=== PATIENT | male | born 1970 | race Caucasian/White ===

== ENCOUNTER 2019-08-03 05:22 | Inpatient (IN) | payer BC ==
[2019-08-03] MEDS ORDERED: Sodium Chloride 0.9% 1,000 ML IV ONE ×2 (05:35→05:38)
[2019-08-03] MEDS ORDERED: Ondansetron 4 MG/2 ML SDV IVPUSH ONE (05:38)
[2019-08-03] MEDS ORDERED: Pantoprazole 40 MG Vial IVPUSH SCH (05:45)
[2019-08-03] MEDS: Sodium Chloride 0.9% 10 ML Syringe FLUSH PRN ×2 (05:46→10:38)
--- NOTE | 2019-08-03 05:47 | EDM.PDOC ---
ED HPI GENERAL MEDICAL PROBLEM - General Chief Complaint: Gastrointestinal Problem Stated Complaint: [facility] Time Seen by Provider: 08/03/19 05:33 Source of Information: Reports: Patient, EMS History Limitations: Reports: No Limitations - History of Present Illness INITIAL COMMENTS - FREE TEXT/NARRATIVE: Patient presents by ambulance from an area cabin in which they were staying after developing maroon-colored stools and weakness approximately 0230 hours today. He has a history of gastric bypass surgery 17 years ago and also an episode of GI bleeding previously. He had been feeling well recently and actually is scheduled for shoulder surgery next week in [place]. He is here visiting from [place], [place] and they were staying in a cabin nearby. He spent much of the day cooking with his and did consume some alcohol in the course of yesterday. After noticing the dark maroon stools and weakness he was going to awaken his who is sleeping in another room but he was too weak to stand up. She came in to assist and again he was too weak so paramedics were called. He's had some nausea but no vomiting. On arrival, he was put into bed but then had another bowel movement urge. He wanted to get up to a bedside commode and after sitting down on the commode, passed out. Multiple staff members were required to get him back into bed and he was semi-alert and diaphoretic. Staff assist page went overhead prior to this event. At this time, he has 2 IVs running wide open and is being given pantoprazole and ondansetron. Onset: Today Quality: Reports: Ache (Neck and arm aches since bleeding began earlier this morning.) Severity: Severe Improves with: Reports: None Worsens with: Reports: Movement Associated Symptoms: Reports: Diaphoresis, Nausea/Vomiting - Related Data Allergies Allergy/AdvReac Type Severity Reaction Status Date / Time azithromycin Allergy Nausea Verified 08/03/19 05:33 codeine Allergy Nausea Verified 08/03/19 05:33 morphine Allergy Nausea Verified 08/03/19 05:33 Home Meds: Home Meds LORazepam [Ativan] 1 mg PO ASDIRECTED PRN 08/03/19 [History] ED ROS GENERAL - Review of Systems Review Of Systems: See Below Constitutional: Reports: Weakness, Diaphoresis HEENT: Reports: No Symptoms Respiratory: Reports: No Symptoms Cardiovascular: Reports: No Symptoms Endocrine: Reports: No Symptoms GI/Abdominal: Reports: Black Stool, Bloody Stool, Nausea : Reports: No Symptoms Musculoskeletal: Reports: Neck Pain, Arm Pain (Both arms.) Skin: Reports: Pallor, Diaphoresis Hematologic/Lymphatic: Denies: Anemia, Easy Bleeding ED EXAM, GI/ABD - Physical Exam Exam: See Below Exam Limited By: Altered Mental Status General Appearance: Lethargic, Severe Distress. No: Active Emesis Neck: Normal Inspection Respiratory/Chest: Lungs Clear Cardiovascular: Tachycardia GI/Abdominal Exam: Soft Course - Vital Signs Last Recorded V/S: Last Vital Signs Temp 35.9 C 08/03/19 05:34 Pulse 116 H 08/03/19 06:52 Resp 16 08/03/19 06:19 BP 123/76 08/03/19 06:52 Pulse Ox 98 08/03/19 06:52 - Orders/Labs/Meds Orders: Active Orders 24 hr Category Date Time Status EKG Documentation Completion [RC] ASDIRECTED Care 08/03/19 06:02 Ordered PATIENT RETYPE [BBK] Stat Lab 08/03/19 05:33 Results TYPE AND SCREEN [BBK] Stat Lab 08/03/19 05:33 Ordered Pantoprazole [ProTONIX IV] Med 08/03/19 05:45 Ordered 80 mg IVPUSH .BOLUS Sodium Chloride 0.9% [Saline Flush] Med 08/03/19 05:33 Ordered 10 ml FLUSH ASDIRECTED PRN Saline Lock Insert [OM.PC] Routine Oth 08/03/19 05:33 Ordered Saline Lock Insert [OM.PC] Routine Oth 08/03/19 05:35 Ordered EKG 12 Lead [EK] Routine Ther 08/03/19 06:01 Ordered Medication Orders Pantoprazole Sodium (Protonix Iv) 80 mg IVPUSH .BOLUS TAMMY Last Admin: 08/03/19 05:49 Dose: 80 mg Sodium Chloride (Saline Flush) 10 ml FLUSH ASDIRECTED PRN PRN Reason: Keep Vein Open Last Admin: 08/03/19 05:46 Dose: 10 ml Labs: Laboratory Tests 08/03/19 08/03/19 08/03/19 Range/Units 05:33 05:33 05:33 WBC 13.8 H (4.5-11.0) K/uL RBC 3.30 L (4.30-5.90) M/uL Hgb 10.0 L (12.0-15.0) g/dL Hct 29.7 L (40.0-54.0) % MCV 90 (80-98) fL MCH 30 (27-31) pg MCHC 34 (32-36) % Plt Count 272 (150-400) K/uL Neut % (Auto) 79 H (36-66) % Lymph % (Auto) 16 L (24-44) % [place] % (Auto) 5 (2-6) % Eos % (Auto) 1 L (2-4) % Baso % (Auto) 0 (0-1) % Sodium 140 (140-148) mmol/L Potassium 4.5 (3.6-5.2) mmol/L Chloride 107 (100-108) mmol/L Carbon Dioxide 16 L (21-32) mmol/L Anion Gap 21.5 H (5.0-14.0) mmol/L BUN 38 H (7-18) mg/dL Creatinine 0.8 (0.8-1.3) mg/dL Est Cr Clr Drug Dosing 125.29 mL/min Estimated GFR (MDRD) > 60 (>60) Glucose 119 H (74-106) mg/dL Calcium 7.7 L (8.5-10.1) mg/dL Total Bilirubin 0.2 (0.2-1.0) mg/dL AST 39 H (15-37) U/L ALT 48 (12-78) U/L Alkaline Phosphatase 55 (46-116) U/L Troponin I (0.000-0.056) ng/mL Total Protein 5.7 L (6.4-8.2) g/dL Albumin 3.0 L (3.4-5.0) g/dL Globulin 2.7 (2.3-3.5) g/dL Albumin/Globulin Ratio 1.1 L (1.2-2.2) Lipase 124 (73-393) U/L Ethyl Alcohol mg/dL Blood Type O POSITIVE Gel Antibody Screen Negative 08/03/19 08/03/19 08/03/19 Range/Units 05:52 06:01 06:32 WBC (4.5-11.0) K/uL RBC (4.30-5.90) M/uL Hgb 8.1 L (12.0-15.0) g/dL Hct (40.0-54.0) % MCV (80-98) fL MCH (27-31) pg MCHC (32-36) % Plt Count (150-400) K/uL Neut % (Auto) (36-66) % Lymph % (Auto) (24-44) % [place] % (Auto) (2-6) % Eos % (Auto) (2-4) % Baso % (Auto) (0-1) % Sodium (140-148) mmol/L Potassium (3.6-5.2) mmol/L Chloride (100-108) mmol/L Carbon Dioxide (21-32) mmol/L Anion Gap (5.0-14.0) mmol/L BUN (7-18) mg/dL Creatinine (0.8-1.3) mg/dL Est Cr Clr Drug Dosing mL/min Estimated GFR (MDRD) (>60) Glucose (74-106) mg/dL Calcium (8.5-10.1) mg/dL Total Bilirubin (0.2-1.0) mg/dL AST (15-37) U/L ALT (12-78) U/L Alkaline Phosphatase (46-116) U/L Troponin I < 0.017 (0.000-0.056) ng/mL Total Protein (6.4-8.2) g/dL Albumin (3.4-5.0) g/dL Globulin (2.3-3.5) g/dL Albumin/Globulin Ratio (1.2-2.2) Lipase (73-393) U/L Ethyl Alcohol 89 mg/dL Blood Type Gel Antibody Screen Meds: Medications Generic Name Dose Route Start Last Admin Trade Name Freq PRN Reason Stop Dose Admin Pantoprazole Sodium 80 mg 08/03/19 05:45 08/03/19 05:49 Protonix Iv IVPUSH 80 mg .BOLUS TAMMY Administration Sodium Chloride 10 ml 08/03/19 05:33 08/03/19 05:46 Saline Flush FLUSH 10 ml ASDIRECTED PRN Administration Keep Vein Open Discontinued Medications Generic Name Dose Route Start Last Admin Trade Name Freq PRN Reason Stop Dose Admin Sodium Chloride 1,000 mls @ 999 mls/hr 08/03/19 05:35 08/03/19 05:39 Normal Saline IV 08/03/19 06:35 999 mls/hr .BOLUS ONE Administration Sodium Chloride 1,000 mls @ 999 mls/hr 08/03/19 05:38 08/03/19 05:40 Normal Saline IV 08/03/19 06:38 999 mls/hr .BOLUS ONE Administration Ondansetron HCl 4 mg 08/03/19 05:38 08/03/19 05:46 Zofran IVPUSH 08/03/19 05:39 4 mg ONETIME ONE Administration - Re-Assessments/Exams Free Text/Narrative Re-Assessment/Exam: 08/03/19 06:02 After placement into bed and establishment of wide open fluid boluses, the patient is feeling better. He is extremely thirsty and has been allowed to have some ice chips. With his history, he may be hospitalized here but also may need to go to a facility that has interventional capabilities given his hypotension. At this time, his hemoglobin is 10. 08/03/19 06:05 08/03/19 06:27 I returned to check on the patient again and is feeling better although he is shaking quite a bit and feels cold. He states that he had had consultation with a Dr. Hooker at [facility] after his GI bleed [address] Hooker told him that he could be having bleeding from the pouch within his gastric bypass area and that could be why they're not seeing anything. I reviewed his case with Dr. Bueno, the hospitalist overnight. He will arrange admission and further evaluation here. 08/03/19 07:19 Recheck hemoglobin is 8.1 after 2 L of normal saline. Departure - Departure Time of Disposition: 06:29 Disposition: Admitted As Inpatient 68 Condition: Fair Clinical Impression: Gastrointestinal bleeding, lower, Hypotension due to blood loss, Nausea Syncope Qualifiers: Syncope type: unspecified Qualified Code(s): R55 - Syncope and collapse - Discharge Information *PRESCRIPTION DRUG MONITORING PROGRAM REVIEWED*: Not Applicable *COPY OF PRESCRIPTION DRUG MONITORING REPORT IN PATIENT CAROLYN: Not Applicable Referrals: PCP,None [Primary Care Provider] - Forms: ED Department Discharge Sepsis Event Note - Evaluation Sepsis Screening Result: No Definite Risk - Focused Exam Vital Signs: Vital Signs Temp Pulse Resp BP Pulse Ox 08/03/19 06:52 116 H 123/76 98 08/03/19 06:19 100 16 124/76 98 08/03/19 06:04 97 117/75 08/03/19 05:49 104 H 116/71 08/03/19 05:34 35.9 C 102 H 16 110/66 98 Date Exam was Performed: 08/03/19 Time Exam was Performed: 07:15 - My Orders Last 24 Hours: My Active Orders 08/03/19 05:33 PATIENT RETYPE [BBK] Stat TYPE AND SCREEN [BBK] Stat Sodium Chloride 0.9% [Saline Flush] 10 ml FLUSH ASDIRECTED PRN Saline Lock Insert [OM.PC] Routine 08/03/19 05:35 Saline Lock Insert [OM.PC] Routine 08/03/19 05:45 Pantoprazole [ProTONIX IV] 80 mg IVPUSH .BOLUS 08/03/19 06:01 EKG 12 Lead [EK] Routine 08/03/19 06:02 EKG Documentation Completion [RC] ASDIRECTED - Assessment/Plan Last 24 Hours: My Active Orders 08/03/19 05:33 PATIENT RETYPE [BBK] Stat TYPE AND SCREEN [BBK] Stat Sodium Chloride 0.9% [Saline Flush] 10 ml FLUSH ASDIRECTED PRN Saline Lock Insert [OM.PC] Routine 08/03/19 05:35 Saline Lock Insert [OM.PC] Routine 08/03/19 05:45 Pantoprazole [ProTONIX IV] 80 mg IVPUSH .BOLUS 08/03/19 06:01 EKG 12 Lead [EK] Routine 08/03/19 06:02 EKG Documentation Completion [RC] ASDIRECTED
--- NOTE | 2019-08-03 07:44 | PCM.HP.2 ---
H&P History of Present Illness - General Date of Service: 08/03/19 Admit Problem/Dx: Admission Diagnosis/Problem Admission Diagnosis/Problem Acute gastrointestinal hemorrhage Source of Information: Patient, Family, Provider History Limitations: Reports: No Limitations - History of Present Illness Initial Comments - Free Text/Narative: CC: pooping blood HPI: Kt presents to the emergency room today with maroon-colored stools. He reports that he was in his usual state of health yesterday. He went to bed last night feeling fine. He woke up this morning with the urge to defecate. When he was in the bathroom he had watery stool which was maroon in color and filled the toilet bowl. He also had some on the floor. He had multiple episodes at home. He was weak, had mild nausea and was slightly diaphoretic. No complaints of abdominal pain. No complaints of chest pain or shortness of breath. He has not had any fevers but does feel chilled at this time. He continues to pass maroon-colored stool at the time of presentation to the emergency room. He had a similar episode a couple of years ago and had negative upper and lower endoscopy at that time. 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 He reports infrequent use of nonsteroidal anti-inflammatories. He does consume alcohol on a daily basis. Work-up in the emergency room revealed a hemoglobin of 10. The patient was tachycardic and initially hypotensive but did respond to IV fluids. He has received a bolus of pantoprazole. He has 2 IV sites and has been typed and crossed for 4 units of blood. He will be admitted to the intensive care unit. - Related Data Allergies/Adverse Reactions: Allergies Allergy/AdvReac Type Severity Reaction Status Date / Time azithromycin Allergy Nausea Verified 08/03/19 05:33 codeine Allergy Nausea Verified 08/03/19 05:33 erythromycin base Allergy Difficulty Verified 08/03/19 08:51 Breathing morphine Allergy Nausea Verified 08/03/19 05:33 Home Medications: Home Meds Ferrous Sulfate [Iron] 1 tab PO TID 08/03/19 [History] LORazepam [Ativan] 1 mg PO ASDIRECTED PRN 08/03/19 [History] Pantoprazole Sodium [Protonix] 40 mg PO BID 08/03/19 [History] Past Medical History Other Cardiovascular History: PVCs Gastrointestinal History: Reports: GI Bleed Genitourinary History: Reports: Renal Calculus Musculoskeletal History: Reports: Neck Pain, Chronic Other Musculoskeletal History: chronic shoulder pain Psychiatric History: Reports: Depression Dermatologic History: Reports: Eczema - Past Surgical History GI Surgical History: Reports: Bariatric Procedure, Cholecystectomy, Colostomy, EGD Other GI Surgeries/Procedures: gastric bypass 2002 Social & Family History - Family History GI: Denies: GI bleed - Tobacco Use Smoking Status *Q: Former Smoker Used Tobacco, but Quit: Yes Month/Year Tobacco Last Used: 2008 - Caffeine Use Caffeine Use: Reports: Coffee, Energy Drinks - Alcohol Use Days Per Week of Alcohol Use: 7 Number of Drinks Per Day: 4 Total Drinks Per Week: 28 - Recreational Drug Use Recreational Drug Use: Yes Recreational Drug Type: Reports: Marijuana/Hashish H&P Review of Systems - Review of Systems: Review Of Systems: See Below Free Text/Narrative: A complete 12 point review of systems was obtained. Pertinent positives and negatives are noted in the history of present illness. All other systems were reviewed and were negative except as noted. Exam - Exam Exam: See Below - Vital Signs Vital Signs: Last Vital Signs Temp 35.9 C 08/03/19 05:34 Pulse 116 H 08/03/19 06:52 Resp 16 08/03/19 06:19 BP 123/76 08/03/19 06:52 Pulse Ox 98 08/03/19 06:52 Weight: 108.862 kg - Exam Quality Assessment: No: Supplemental Oxygen General: Alert, Oriented, Cooperative. No: Mild Distress HEENT: Conjunctiva Clear, Mucosa Moist & [place]. No: Scleral Icterus Neck: Supple, Trachea Midline. No: Lymphadenopathy Lungs: Clear to Auscultation, Normal Respiratory Effort Cardiovascular: Regular Rhythm, Tachycardia. No: Systolic Murmur GI/Abdominal Exam: Normal Bowel Sounds, Soft, Non-Tender, No Distention Extremities: No Pedal Edema. No: Increased Warmth Peripheral Pulses: 2+: Dorsalis Pedis (L), Dorsalis Pedis (R) Skin: Warm, Dry Neuro Extensive - Mental Status: Alert, Oriented x3, Nl Response to Commands Neuro Extensive - Motor, Sensory, Reflexes: No: Dysarthria, Abnormal Motor, Tremor Psychiatric: Alert, Normal Affect - Patient Data Lab Results Last 24 hrs: Laboratory Results - last 24 hr 08/03/19 08/03/19 08/03/19 Range/Units 05:33 05:33 05:33 WBC 13.8 H (4.5-11.0) K/uL RBC 3.30 L (4.30-5.90) M/uL Hgb 10.0 L (12.0-15.0) g/dL Hct 29.7 L (40.0-54.0) % MCV 90 (80-98) fL MCH 30 (27-31) pg MCHC 34 (32-36) % Plt Count 272 (150-400) K/uL Neut % (Auto) 79 H (36-66) % Lymph % (Auto) 16 L (24-44) % [place] % (Auto) 5 (2-6) % Eos % (Auto) 1 L (2-4) % Baso % (Auto) 0 (0-1) % Sodium 140 (140-148) mmol/L Potassium 4.5 (3.6-5.2) mmol/L Chloride 107 (100-108) mmol/L Carbon Dioxide 16 L (21-32) mmol/L Anion Gap 21.5 H (5.0-14.0) mmol/L BUN 38 H (7-18) mg/dL Creatinine 0.8 (0.8-1.3) mg/dL Est Cr Clr Drug Dosing 125.29 mL/min Estimated GFR (MDRD) > 60 (>60) Glucose 119 H (74-106) mg/dL Calcium 7.7 L (8.5-10.1) mg/dL Total Bilirubin 0.2 (0.2-1.0) mg/dL AST 39 H (15-37) U/L ALT 48 (12-78) U/L Alkaline Phosphatase 55 (46-116) U/L Troponin I (0.000-0.056) ng/mL Total Protein 5.7 L (6.4-8.2) g/dL Albumin 3.0 L (3.4-5.0) g/dL Globulin 2.7 (2.3-3.5) g/dL Albumin/Globulin Ratio 1.1 L (1.2-2.2) Lipase 124 (73-393) U/L Ethyl Alcohol mg/dL Blood Type O POSITIVE Gel Antibody Screen Negative Crossmatch See Detail 0108/03/19 08/03/19 Range/Units 05:52 06:01 06:32 WBC (4.5-11.0) K/uL RBC (4.30-5.90) M/uL Hgb 8.1 L (12.0-15.0) g/dL Hct (40.0-54.0) % MCV (80-98) fL MCH (27-31) pg MCHC (32-36) % Plt Count (150-400) K/uL Neut % (Auto) (36-66) % Lymph % (Auto) (24-44) % [place] % (Auto) (2-6) % Eos % (Auto) (2-4) % Baso % (Auto) (0-1) % Sodium (140-148) mmol/L Potassium (3.6-5.2) mmol/L Chloride (100-108) mmol/L Carbon Dioxide (21-32) mmol/L Anion Gap (5.0-14.0) mmol/L BUN (7-18) mg/dL Creatinine (0.8-1.3) mg/dL Est Cr Clr Drug Dosing mL/min Estimated GFR (MDRD) (>60) Glucose (74-106) mg/dL Calcium (8.5-10.1) mg/dL Total Bilirubin (0.2-1.0) mg/dL AST (15-37) U/L ALT (12-78) U/L Alkaline Phosphatase (46-116) U/L Troponin I < 0.017 (0.000-0.056) ng/mL Total Protein (6.4-8.2) g/dL Albumin (3.4-5.0) g/dL Globulin (2.3-3.5) g/dL Albumin/Globulin Ratio (1.2-2.2) Lipase (73-393) U/L Ethyl Alcohol 89 mg/dL Blood Type Gel Antibody Screen Crossmatch Result Diagrams: 08/03/19 12:00 08/03/19 05:33 Sepsis Event Note - Evaluation Sepsis Screening Result: No Definite Risk - Focused Exam Vital Signs: Vital Signs Temp Pulse Resp BP Pulse Ox 08/03/19 06:52 116 H 123/76 98 08/03/19 06:19 100 16 124/76 98 08/03/19 06:04 97 117/75 01/19/20 05:49 104 H 116/71 08/03/19 05:34 35.9 C 102 H 16 110/66 98 Date Exam was Performed: 08/03/19 Time Exam was Performed: 12:12 *Q Meaningful Use (ADM) - VTE *Q VTE Pharmacological Contraindications *Q: Active Hemorrhage - VTE Risk Assess *Q Each Risk Factor Represents 1 Point: Age 41 - 59 years, Obesity ( BMI > 25 kg/m2 ) Total Score 1 Point Risk Factors: 2 Each Risk Factor Represents 2 Points: None Total Score 2 Point Risk Factors: 0 Each Risk Factor Represents 3 Points: None Total Score 3 Point Risk Factors: 0 Each Risk Factor Represents 5 Points: None Total Score 5 Point Risk Factors: 0 Venous Thromboembolism Risk Factor Score *Q: 2 - Problem List (1) Acute GI hemorrhage SNOMED Code(s): 59282670 ICD Code: K92.2 - GASTROINTESTINAL HEMORRHAGE, UNSPECIFIED Status: Acute Current Visit: Yes (2) Anemia due to blood loss, acute SNOMED Code(s): 417075768 ICD Code: D62 - ACUTE POSTHEMORRHAGIC ANEMIA Status: Acute Current Visit : Yes (3) Hx of gastric bypass SNOMED Code(s): 639044785 ICD Code: Z98.84 - BARIATRIC SURGERY STATUS Status: Chronic Current Visit : Yes Problem List Initiated/Reviewed/Updated: Yes Orders Last 24hrs: Active Orders 24 hr Category Date Time Status Patient Status Manage Transfer [TRANSFER] Routine ADT 08/03/19 07:35 Ordered EKG Documentation Completion [RC] ASDIRECTED Care 08/03/19 06:02 Active PATIENT RETYPE [BBK] Stat Lab 08/03/19 05:33 Results RED BLOOD CELLS LP [BBK] Stat Lab 08/03/19 05:33 Results TYPE AND SCREEN [BBK] Stat Lab 08/03/19 05:33 Results Pantoprazole [ProTONIX IV] Med 08/03/19 05:45 Active 80 mg IVPUSH .BOLUS Sodium Chloride 0.9% [Normal Saline] 1,000 ml Med 08/03/19 07:45 Active IV ASDIRECTED Sodium Chloride 0.9% [Saline Flush] Med 08/03/19 05:33 Active 10 ml FLUSH ASDIRECTED PRN Saline Lock Insert [OM.PC] Routine Oth 08/03/19 05:33 Ordered Saline Lock Insert [OM.PC] Routine Oth 08/03/19 05:35 Ordered Resuscitation Status Routine Resus Stat 08/03/19 07:36 Ordered EKG 12 Lead [EK] Routine Ther 08/03/19 06:01 Ordered Medication Orders Sodium Chloride (Normal Saline) 1,000 mls @ 125 mls/hr IV ASDIRECTED TAMMY Pantoprazole Sodium (Protonix Iv) 80 mg IVPUSH .BOLUS TAMMY Last Admin: 08/03/19 05:49 Dose: 80 mg Sodium Chloride (Saline Flush) 10 ml FLUSH ASDIRECTED PRN PRN Reason: Keep Vein Open Last Admin: 08/03/19 05:46 Dose: 10 ml Assessment/Plan Comment:: ASSESSMENT AND PLAN - Acute gastrointestinal hemorrhage-complicated by acute anemia secondary to blood loss. He is tachycardic but his blood pressure has stabilized. This could be a brisk upper GI bleed from the remnant stomach versus a lower GI bleed. History of similar episode with no source of bleeding identified 2 years ago. 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 Maintenance issues - - DVT prophylaxis -SCDs with active hemorrhage - GI prophylaxis -PPI as above - Nutrition - nothing by mouth - López catheter -not indicated CODE STATUS -full code Admission justification - this patient will be admitted for inpatient services and is medically appropriate meeting medical necessity for inpatient admission as outlined in my documentation. I reasonably expect the patient will require inpatient services that span a period time over 2 midnights. I reasonably expect this patient to be discharged or transferred within 96 hours [facility]. Disposition -I would anticipate discharge home after the hospital stay Primary care physician -Ramírez Bueno M.D. - Mortality Measure Prognosis:: Good
[2019-08-03] MEDS ORDERED: Ondansetron 4 MG Tab.DIS PO PRN (08:36)
[2019-08-03] MEDS ORDERED: Acetaminophen 325 MG Tab PO PRN (08:36)
[2019-08-03] MEDS ORDERED: Ondansetron 4 MG/2 ML SDV IV PRN (08:36)
[2019-08-03] MEDS ORDERED: LORazepam 2 MG/ML SDV IVPUSH PRN (08:36)
[2019-08-03] MEDS: Sodium Chloride 0.9% 1,000 ML IV SCH (09:11)
[2019-08-03] MEDS: Sodium Chloride 0.9% 100 ML with Pantoprazole 80 MG IV SCH ×6 (09:13→18:38)
[2019-08-03] MEDS ORDERED: Propofol 200 MG/20 ML SDV ONE (12:43)
[2019-08-03] MEDS ORDERED: fentaNYL 100 MCG/2 ML SDV ONE (12:44)
[2019-08-03] MEDS ORDERED: Polyethylene Glycol 3350 Powder 238 GM Bot PO ONE (13:44)
[2019-08-03] MEDS: LORazepam 2 MG/ML SDV IVPUSH PRN (22:51)
[2019-08-04] MEDS: Sodium Chloride 0.9% 100 ML with Pantoprazole 80 MG IV SCH ×6 (03:50→16:28)
[2019-08-04] MEDS: Sodium Chloride 0.9% 1,000 ML IV SCH ×3 (05:36→19:55)
--- NOTE | 2019-08-04 08:57 | OR ---
DATE OF PROCEDURE: 08/03/2019 SURGEON: Thuan Sandoval MD PROCEDURE: Esophagogastroduodenoscopy. FINDINGS: Normal EGD. COMPLICATIONS: None. GANG WORKER: None. ANESTHESIA: MAC. PREOPERATIVE DIAGNOSIS: Gastrointestinal bleeding. POSTOPERATIVE DIAGNOSIS: Gastrointestinal bleeding. RISKS: Risks, benefits, alternatives, and limitations including, but not limited to infection, bleeding, and injury to abdominal structures, such as perforation, were explained to the patient, who wished to proceed. PROCEDURE IN DETAIL: The patient was placed in left lateral decubitus position. The EGD scope was introduced and advanced atraumatically into the Mushtaq-en-Y limb. The Mushtaq-en-Y limb was completely normal. The pouch was appropriately sized. No evidence of ulceration or gastritis. No old or new blood. The GE junction was normal. The patient tolerated the procedure well. Thuan Sandoval MD /[id number]
[2019-08-04] MEDS ORDERED: Propofol 200 MG/20 ML SDV ONE (10:04)
[2019-08-04] MEDS ORDERED: Midazolam 1 MG/ML 2 ML SDV ONE (10:04)
[2019-08-04] MEDS ORDERED: fentaNYL 100 MCG/2 ML SDV ONE (10:04)
--- NOTE | 2019-08-04 10:27 | PCM.PN ---
- General Info Date of Service: 08/04/19 Subjective Update: Mr. Gilbert is a 49-year-old gentleman who was admitted through the emergency department yesterday with hematochezia, secondary to GI bleed. He is status post previous Mushtaq-en-Y gastric bypass surgery. He has experienced 2 previous episodes of GI bleeding, both of which were felt to be secondary to the remnant stomach. He was feeling well yesterday when he noted hematochezia with a bowel movement and then began to feel weak and lightheaded. He was brought to the emergency department for further evaluation, initial hemoglobin was 10. EGD was performed yesterday by Dr. Sandoval showing no obvious source of blood loss. He is received IV fluids and serial hemoglobin levels. Hemoglobin dropped to 7.1 last night and he was transfused 1 unit of red blood cells. Hemoglobin this morning was 7.5 and he has received a second unit of red blood cells. Most recent hemoglobin is up to 8.5. Functional Status: Reports: Urinating - Review of Systems General: Reports: Weakness. Denies: Fever, Chills Pulmonary: Reports: No Symptoms Cardiovascular: Reports: No Symptoms Gastrointestinal: Reports: No Symptoms - Patient Data Vitals - Most Recent: Last Vital Signs Temp 97.3 F 08/04/19 09:00 Pulse 81 08/04/19 09:00 Resp 24 H 08/04/19 09:00 BP 116/69 08/04/19 09:00 Pulse Ox 98 08/04/19 09:00 Weight - Most Recent: 240 lb I&O - Last 24 Hours: Intake & Output 08/03/19 08/04/19 08/04/19 22:59 06:59 14:59 Intake Total 4040 1991 390 Output Total 425 Balance 4040 1991 Lab Results Last 24 Hours: Laboratory Results - last 24 hr 08/03/19 08/03/19 08/03/19 Range/Units 05:33 12:00 20:32 WBC (4.5-11.0) K/uL RBC (4.30-5.90) M/uL Hgb 8.2 L 7.1 L (12.0-15.0) g/dL Hct (40.0-54.0) % MCV (80-98) fL MCH (27-31) pg MCHC (32-36) % Plt Count (150-400) K/uL Sodium (140-148) mmol/L Potassium (3.6-5.2) mmol/L Chloride (100-108) mmol/L Carbon Dioxide (21-32) mmol/L Anion Gap (5.0-14.0) mmol/L BUN (7-18) mg/dL Creatinine (0.8-1.3) mg/dL Est Cr Clr Drug Dosing mL/min Estimated GFR (MDRD) (>60) Glucose (74-106) mg/dL Calcium (8.5-10.1) mg/dL Blood Type O POSITIVE Gel Antibody Screen Negative Crossmatch See Detail 08/04/19 08/04/19 08/04/19 Range/Units 04:30 04:30 10:06 WBC 5.2 (4.5-11.0) K/uL RBC 2.60 L (4.30-5.90) M/uL Hgb 7.5 L 8.5 L (12.0-15.0) g/dL Hct 23.7 L (40.0-54.0) % MCV 91 (80-98) fL MCH 29 (27-31) pg MCHC 32 (32-36) % Plt Count 176 (150-400) K/uL Sodium 141 (140-148) mmol/L Potassium 3.5 L (3.6-5.2) mmol/L Chloride 109 H (100-108) mmol/L Carbon Dioxide 25 (21-32) mmol/L Anion Gap 10.5 (5.0-14.0) mmol/L BUN 15 D (7-18) mg/dL Creatinine 0.7 L (0.8-1.3) mg/dL Est Cr Clr Drug Dosing 143.39 mL/min Estimated GFR (MDRD) > 60 (>60) Glucose 96 (74-106) mg/dL Calcium 7.0 L (8.5-10.1) mg/dL Blood Type Gel Antibody Screen Crossmatch Med Orders - Current: Current Medications Acetaminophen (Tylenol) 650 mg PO Q4H PRN PRN Reason: Pain (Mild 1-3)/fever Sodium Chloride (Normal Saline) 1,000 mls @ 125 mls/hr IV ASDIRECTED TAMMY Last Admin: 08/04/19 05:36 Dose: 125 mls/hr Pantoprazole Sodium 80 mg/ (Sodium Chloride) 100 mls @ 10 mls/hr IV .Q10H TAMMY Last Admin: 08/04/19 05:36 Dose: Not Given Potassium Chloride 40 meq/ (Premix) 100 mls @ 25 mls/hr IV ONETIME ONE Stop: 08/04/19 14:17 Lorazepam (Ativan) 0.5 mg IVPUSH Q4H PRN PRN Reason: Nausea/Vomiting Last Admin: 08/03/19 10:35 Dose: 0.5 mg Lorazepam (Ativan) 0.5 mg IVPUSH Q4H PRN PRN Reason: Anxiety Last Admin: 08/03/19 22:51 Dose: 0.5 mg Ondansetron HCl (Zofran Odt) 4 mg PO Q6H PRN PRN Reason: Nausea able to take PO Ondansetron HCl (Zofran) 4 mg IV Q6H PRN PRN Reason: Nausea/Vomiting Sodium Chloride (Saline Flush) 10 ml FLUSH ASDIRECTED PRN PRN Reason: Keep Vein Open Last Admin: 08/03/19 10:38 Dose: 10 ml Discontinued Medications Fentanyl (Sublimaze) Confirm Administered Dose 100 mcg .ROUTE .STK-MED ONE Stop: 08/03/19 12:45 Fentanyl (Sublimaze) Confirm Administered Dose 100 mcg .ROUTE .STK-MED ONE Stop: 08/04/19 10:05 Sodium Chloride (Normal Saline) 1,000 mls @ 999 mls/hr IV .BOLUS ONE Stop: 08/03/19 06:35 Last Admin: 08/03/19 05:39 Dose: 999 mls/hr Sodium Chloride (Normal Saline) 1,000 mls @ 999 mls/hr IV .BOLUS ONE Stop: 08/03/19 06:38 Last Admin: 08/03/19 05:40 Dose: 999 mls/hr Midazolam HCl (Versed 1 Mg/Ml) Confirm Administered Dose 2 mg .ROUTE .STK-MED ONE Stop: 08/04/19 10:05 Ondansetron HCl (Zofran) 4 mg IVPUSH ONETIME ONE Stop: 08/03/19 05:39 Last Admin: 08/03/19 05:46 Dose: 4 mg Pantoprazole Sodium (Protonix Iv) 80 mg IVPUSH .BOLUS TAMMY Last Admin: 08/03/19 05:49 Dose: 80 mg Polyethylene Glycol (Miralax) 238 gm PO ONETIME ONE Stop: 08/03/19 13:45 Last Admin: 08/03/19 15:07 Dose: 238 gm Propofol (Diprivan 20 Ml) Confirm Administered Dose 200 mg .ROUTE .STK-MED ONE Stop: 08/03/19 12:44 Propofol (Diprivan 20 Ml) Confirm Administered Dose 200 mg .ROUTE .STK-MED ONE Stop: 08/04/19 10:05 - Exam General: Alert, Oriented, Cooperative, No Acute Distress Lungs: Clear to Auscultation, Normal Respiratory Effort Cardiovascular: Regular Rate, Regular Rhythm, No Murmurs GI/Abdominal Exam: Soft, Non-Tender, No Organomegaly, No Distention Extremities: Non-Tender, No Pedal Edema Sepsis Event Note - Evaluation Sepsis Screening Result: No Definite Risk - Focused Exam Vital Signs: Vital Signs Temp Temp Pulse Resp BP Pulse Ox 08/04/19 09:00 97.3 F 81 24 H 116/69 98 08/04/19 08:43 97.3 F 89 24 H 116/69 08/04/19 08:36 98 08/04/19 08:30 97.3 F 81 19 111/72 08/04/19 08:00 97.6 F 82 18 104/59 L 08/04/19 07:30 97.4 F 85 14 112/76 08/04/19 07:00 97.5 F 79 17 108/70 95 08/04/19 06:45 97.7 F 81 19 113/68 08/04/19 06:30 97.4 F 75 17 98/65 08/04/19 06:18 98.0 F 78 16 97/66 08/04/19 06:14 97.5 F 77 17 105/64 08/04/19 05:40 98.9 F 80 18 103/61 96 08/04/19 02:00 97.9 F 82 19 108/68 98 08/03/19 23:41 98.9 F 83 17 100/56 L 96 08/03/19 23:15 98.7 F 90 18 97/65 97 08/03/19 23:03 98.5 F 86 17 101/65 96 08/03/19 22:45 99.0 F 90 16 104/61 98 08/03/19 22:30 99.5 F 88 18 123/67 Date Exam was Performed: 08/04/19 Time Exam was Performed: 10:19 - Problem List Review Problem List Initiated/Reviewed/Updated: Yes - My Orders Last 24 Hours: My Active Orders 08/04/19 10:18 Potassium Chloride Riders [KCL 40 MEQ in Water 100 ML] 40 meq Premix Bag 1 bag IV ONETIME 08/04/19 17:00 HGB [HEMOGLOBIN] [HEME] Stat 08/04/19 23:00 HGB [HEMOGLOBIN] [HEME] Stat 08/05/19 05:00 BASIC METABOLIC PANEL,BMP [CHEM] Timed CBC WITH AUTO DIFF [HEME] Timed - Plan Plan:: ASSESSMENT AND PLAN - Acute gastrointestinal hemorrhage-complicated by acute anemia secondary to blood loss. Since admission he has required transfusion of 2 units of red blood cells. EGD performed yesterday showed no obvious source of bleeding, colonoscopy pending this morning. 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 -ICU admission -Maintain 2 IV sites -Pantoprazole infusion -Repeat hemoglobin every 6 hours -Type and cross for 4 units -Transfuse if hypotension or persistent tachycardia or if hemoglobin drops -IV fluids -Surgical consultation for colonoscopy Status post Mushtaq-en-Y gastric bypass-this was done in 2002 in the [facility]. Maintenance issues - - DVT prophylaxis -SCDs with active hemorrhage - GI prophylaxis -PPI as above - Nutrition - nothing by mouth - López catheter -not indicated CODE STATUS -full code Admission justification - this patient will be admitted for inpatient services and is medically appropriate meeting medical necessity for inpatient admission as outlined in my documentation. I reasonably expect the patient will require inpatient services that span a period time over 2 midnights. I reasonably expect this patient to be discharged or transferred within 96 hours [facility] Disposition -I would anticipate discharge home after the hospital stay Primary care physician -Ramírez ANGELES
[2019-08-04] MEDS: Potassium Chloride 20 MEQ, Lidocaine 1% 2 ML in Sodium Chloride 0.9% 100 ML IV SCH ×2 (11:26→13:47)
--- NOTE | 2019-08-04 11:32 | OR ---
DATE OF PROCEDURE: 08/04/2019 SURGEON: Thuan Sandoval MD PROCEDURE: Colonoscopy. FINDINGS: 1. No evidence of old or new blood. 2. No diverticulosis. 3. No etiology for anemia. COMPLICATIONS: None. SUPERVISOR UNLOADING: None. RISKS: Risks, benefits, alternatives, and limitations including, but not limited to infection, bleeding, and perforation were explained to the patient, who wished to proceed. PROCEDURE IN DETAIL: The patient was placed in left lateral decubitus position. Digital rectal exam was performed without abnormality. The scope was introduced and advanced atraumatically to the ileocecal valve. The scope was brought back through the ascending, transverse, descending colon, and retroflexed. No evidence of old or new blood. No masses. No polyps. No diverticulosis. No abnormalities on retroflexion. The patient tolerated the procedure well. Thuan Sandoval MD /[id number]
[2019-08-04] MEDS: LORazepam 2 MG/ML SDV IVPUSH PRN (22:59)
[2019-08-05] MEDS: Sodium Chloride 0.9% 100 ML with Pantoprazole 80 MG IV SCH ×2 (02:10)
[2019-08-05] MEDS: Sodium Chloride 0.9% 1,000 ML IV SCH (02:11)
--- NOTE | 2019-08-05 11:02 | PCM.DCSUM1 ---
Discharge Summary - Hospital Course Brief History: Mr. Gilbert is a 49-year-old gentleman who was admitted through the emergency department with weakness and hematochezia secondary to a GI bleed. - Discharge Data Discharge Date: 08/05/19 Discharge Disposition: Home, Self-Care 01 Condition: Stable - Referral to Home Health Primary Care Physician: PCP None - Discharge Diagnosis/Problem(s) (1) Hypotension due to blood loss SNOMED Code(s): 85849489 ICD Code: I95.89 - OTHER HYPOTENSION Status: Acute Current Visit: Yes (2) Acute GI hemorrhage SNOMED Code(s): 26252713 ICD Code: K92.2 - GASTROINTESTINAL HEMORRHAGE, UNSPECIFIED Status: Acute Current Visit: Yes (3) Anemia due to blood loss, acute SNOMED Code(s): 081986781 ICD Code: D62 - ACUTE POSTHEMORRHAGIC ANEMIA Status: Acute Current Visit : Yes (4) Hx of gastric bypass SNOMED Code(s): 758033337 ICD Code: Z98.84 - BARIATRIC SURGERY STATUS Status: Chronic Current Visit : Yes - Patient Summary/Data Consults: Consultations 08/05/19 10:02 Consult to Physician [CONS] Routine Consulting Provider: Thom Hope Courtesy Call Completed to Consulting Physician: Yes Reason for Consult: Recurrent upper GI bleeds, status post gastric bypass surgery Hospital Course: Mr. Gilbert presented to the emergency room with maroon-colored stools. He went to bed on the evening prior to admission feeling fine. He woke up with the urge to defecate. When he was in the bathroom he had watery stool which was maroon in color and filled the toilet bowl. He also had some on the floor. He had multiple episodes at home. He was weak, had mild nausea and was slightly diaphoretic. No complaints of abdominal pain. He continues to pass maroon- colored stool at the time of presentation to the emergency room. He had 2 previous episodes of similar bleeding and had negative upper and lower endoscopy at that time. 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 He reports infrequent use of nonsteroidal anti- inflammatories. He does consume alcohol on a daily basis. Work-up in the emergency room revealed a hemoglobin of 10. The patient was tachycardic and initially hypotensive but did respond to IV fluids. He has received a bolus of pantoprazole. He has 2 IV sites and has been typed and crossed for 4 units of blood. He will be admitted to the intensive care unit. On admission he was continued on the IV Protonix as well as IV fluids. Serial hemoglobin levels were obtained and hemoglobin did drop to 7.1 on the evening of admission. He was transfused 2 units of red blood cells and following that there was no further evidence of active bleeding. Hemoglobin remained within stable range from 7.9-8.5, on the day of discharge hemoglobin was 8.1. He was seen and evaluated by Dr. Sandoval for a surgical consult. EGD was performed on the day after admission and showed no obvious source of active bleeding. Colonoscopy was performed the following day and also showed no obvious source of active bleeding. Prior to discharge she was seen and evaluated by Dr. Hope for bariatric surgery consult, concern is that recurrent episodes of bleeding are from the remnant stomach. Patient will consider information given to him by Dr. Hope and consider follow-up with Dr. Hope versus other bariatric surgeon. Activity will be as tolerated and he will resume his usual diet. Follow-up appointment will be scheduled with his primary care provider within 1 week, hemoglobin level should be obtained at the time of follow-up appointment. He will return immediately to the emergency department if he notes any recurrent symptoms of bleeding. - Patient Instructions Diet: Usual Diet as Tolerated Activity: As Tolerated Other/Special Instructions: Please schedule follow-up appointment with primary care provider, Damien Jeffrey MD, within 1 week. Hemoglobin level should be obtained at the time of follow-up appointment. Bariatric surgery follow-up with the physician of his choice, concerning the recurrent GI bleeds. - Discharge Plan *PRESCRIPTION DRUG MONITORING PROGRAM REVIEWED*: Not Applicable *COPY OF PRESCRIPTION DRUG MONITORING REPORT IN PATIENT CAROLYN: Not Applicable Home Medications: Home Meds Ferrous Sulfate [Iron] 1 tab PO TID 08/03/19 [History] LORazepam [Ativan] 1 mg PO ASDIRECTED PRN 08/03/19 [History] Pantoprazole Sodium [Protonix] 40 mg PO BID 08/03/19 [History] - Discharge Summary/Plan Comment DC Time >30 min.: No - Patient Data Vitals - Most Recent: Last Vital Signs Temp 97.8 F 08/05/19 03:00 Pulse 89 08/05/19 09:00 Resp 93 H 08/05/19 09:00 BP 120/75 08/05/19 09:00 Pulse Ox 97 08/05/19 09:00 Weight - Most Recent: 239 lb 15.994 oz I&O - Last 24 hours: Intake & Output 08/04/19 08/05/19 08/05/19 22:59 06:59 14:59 Intake Total 3061 500 Output Total 500 Balance 2561 500 Lab Results - Last 24 hrs: Laboratory Results - last 24 hr 08/04/19 08/04/19 08/05/19 Range/Units 16:40 23:00 04:15 WBC 4.5 (4.5-11.0) K/uL RBC 2.78 L (4.30-5.90) M/uL Hgb 8.5 L 7.9 L 8.1 L (12.0-15.0) g/dL Hct 25.6 L (40.0-54.0) % MCV 92 (80-98) fL MCH 29 (27-31) pg MCHC 32 (32-36) % Plt Count 176 (150-400) K/uL Neut % (Auto) 59 (36-66) % Lymph % (Auto) 30 (24-44) % [place] % (Auto) 8 H (2-6) % Eos % (Auto) 3 (2-4) % Baso % (Auto) 0 (0-1) % Sodium (140-148) mmol/L Potassium (3.6-5.2) mmol/L Chloride (100-108) mmol/L Carbon Dioxide (21-32) mmol/L Anion Gap (5.0-14.0) mmol/L BUN (7-18) mg/dL Creatinine (0.8-1.3) mg/dL Est Cr Clr Drug Dosing mL/min Estimated GFR (MDRD) (>60) Glucose (74-106) mg/dL Calcium (8.5-10.1) mg/dL 08/05/19 Range/Units 04:15 WBC (4.5-11.0) K/uL RBC (4.30-5.90) M/uL Hgb (12.0-15.0) g/dL Hct (40.0-54.0) % MCV (80-98) fL MCH (27-31) pg MCHC (32-36) % Plt Count (150-400) K/uL Neut % (Auto) (36-66) % Lymph % (Auto) (24-44) % [place] % (Auto) (2-6) % Eos % (Auto) (2-4) % Baso % (Auto) (0-1) % Sodium 140 (140-148) mmol/L Potassium 3.8 (3.6-5.2) mmol/L Chloride 108 (100-108) mmol/L Carbon Dioxide 26 (21-32) mmol/L Anion Gap 5.6 (5.0-14.0) mmol/L BUN 6 L D (7-18) mg/dL Creatinine 0.6 L (0.8-1.3) mg/dL Est Cr Clr Drug Dosing 167.29 mL/min Estimated GFR (MDRD) > 60 (>60) Glucose 90 (74-106) mg/dL Calcium 7.3 L (8.5-10.1) mg/dL Med Orders - Current: Current Medications Acetaminophen (Tylenol) 650 mg PO Q4H PRN PRN Reason: Pain (Mild 1-3)/fever Last Admin: 08/04/19 15:29 Dose: 650 mg Lorazepam (Ativan) 0.5 mg IVPUSH Q4H PRN PRN Reason: Nausea/Vomiting Last Admin: 08/03/19 10:35 Dose: 0.5 mg Lorazepam (Ativan) 0.5 mg IVPUSH Q4H PRN PRN Reason: Anxiety Last Admin: 08/04/19 22:59 Dose: 0.5 mg Ondansetron HCl (Zofran Odt) 4 mg PO Q6H PRN PRN Reason: Nausea able to take PO Ondansetron HCl (Zofran) 4 mg IV Q6H PRN PRN Reason: Nausea/Vomiting Pantoprazole Sodium (Protonix) 40 mg PO BIDAC TAMMY Sodium Chloride (Saline Flush) 10 ml FLUSH ASDIRECTED PRN PRN Reason: Keep Vein Open Last Admin: 08/03/19 10:38 Dose: 10 ml Discontinued Medications Fentanyl (Sublimaze) Confirm Administered Dose 100 mcg .ROUTE .STK-MED ONE Stop: 08/03/19 12:45 Fentanyl (Sublimaze) Confirm Administered Dose 100 mcg .ROUTE .STK-MED ONE Stop: 08/04/19 10:05 Sodium Chloride (Normal Saline) 1,000 mls @ 999 mls/hr IV .BOLUS ONE Stop: 08/03/19 06:35 Last Admin: 08/03/19 05:39 Dose: 999 mls/hr Sodium Chloride (Normal Saline) 1,000 mls @ 999 mls/hr IV .BOLUS ONE Stop: 08/03/19 06:38 Last Admin: 08/03/19 05:40 Dose: 999 mls/hr Sodium Chloride (Normal Saline) 1,000 mls @ 125 mls/hr IV ASDIRECTED [facility] Last Admin: 08/05/19 02:11 Dose: 125 mls/hr Pantoprazole Sodium 80 mg/ (Sodium Chloride) 100 mls @ 10 mls/hr IV .Q10H [facility] Last Admin: 08/04/19 05:36 Dose: Not Given Potassium Chloride 20 meq/Lidocaine HCl 2 ml/ Sodium Chloride 112 mls @ 56 mls/ hr IV Q2H [facility] Stop: 08/04/19 14:59 Last Admin: 08/04/19 13:47 Dose: 56 mls/hr Pantoprazole Sodium 80 mg/ (Sodium Chloride) 100 mls @ 10 mls/hr IV .Q10H [facility] Last Admin: 08/05/19 02:10 Dose: 10 mls/hr Midazolam HCl (Versed 1 Mg/Ml) Confirm Administered Dose 2 mg .ROUTE .STK-MED ONE Stop: 08/04/19 10:05 Ondansetron HCl (Zofran) 4 mg IVPUSH ONETIME ONE Stop: 08/03/19 05:39 Last Admin: 08/03/19 05:46 Dose: 4 mg Pantoprazole Sodium (Protonix Iv) 80 mg IVPUSH .BOLUS [facility] Last Admin: 08/03/19 05:49 Dose: 80 mg Polyethylene Glycol (Miralax) 238 gm PO ONETIME ONE Stop: 08/03/19 13:45 Last Admin: 08/03/19 15:07 Dose: 238 gm Propofol (Diprivan 20 Ml) Confirm Administered Dose 200 mg .ROUTE .STK-MED ONE Stop: 08/03/19 12:44 Propofol (Diprivan 20 Ml) Confirm Administered Dose 200 mg .ROUTE .STK-MED ONE Stop: 08/04/19 10:05 - Exam General: Reports: Alert, Oriented, Cooperative, No Acute Distress Lungs: Reports: Clear to Auscultation, Normal Respiratory Effort Cardiovascular: Reports: Regular Rate, Regular Rhythm, No Murmurs GI/Abdominal Exam: Soft, Non-Tender, No Organomegaly, No Distention Extremities: Non-Tender, No Pedal Edema *Q Meaningful Use (DIS) - VTE *Q VTE Pharmacological Contraindications *Q: Active Hemorrhage
[2019-08-05] MEDS ORDERED: Pantoprazole 40 MG Tab.CR PO SCH (16:30)
--- NOTE | 2019-08-06 12:50 | CONS ---
DATE OF SERVICE: 08/05/2019 REFERRING PHYSICIAN: CONSULTING PHYSICIAN: Thom Hope MD SUMMARY: This is a 49-year-old status post Mushtaq-en-Y gastric bypass done in [facility] in the early . He presents with GI bleeding with moving stools. He has had 2 previous hospitalizations for GI bleeding, in which case, both the upper and lower endoscopies were normal. Earlier in this hospital, the patient had normal upper and lower endoscopies as well and, at this point, is felt most likely the patient does have bleeding from the bypassed stomach or possibly duodenum. On presentation, the patient was initially tachycardiac and hypotensive, but did respond to IV fluid and transfusions. He has now stabilized with no further bleeding, and he will be discharged home. He will be sent home on a course of proton pump inhibitors. A long discussion was held with the patient and his regarding treatment options. At this point, he has had 3 bleeds with most recent one was associated with hemodynamic instability. Most likely, this is the bleeding from the bypassed stomach and/or duodenum, and the treatment would be more or less a total gastrectomy removing the entire remaining stomach apart from the gastric pouch and gastric bypass anatomy. He is aware that this in all likelihood would alleviate the problems with recurrent bleeding. He is aware there is some possibility that there is some bleeding from the small bowel source and that would be evaluated intraoperatively to the extent possible. One might consider redoing the jejunojejunostomy as well in case that might be a source of some bleeding from retained sutures and such. At this point, the patient is stable and wishes to be discharged home. He will be looking at a schedule with his and calling back regarding scheduling the above procedure. The original surgery will be done as an open procedure and, presumably, the patient has a retrocolic Mushtaq limb, all of which would make this upcoming procedure needing to be an open procedure as well. Potential risks including bleeding, infection, leaks from various GI tract closures, and possibility of recurrent bleeding following the procedure were all reviewed, and the patient wishes to proceed. He will be contacting the surgery department when he wishes to have this scheduled. Thom Hope MD /[id number]
== END 2019-08-05 11:37 | disposition home or self-care (01) | DRG 252 ==
LOC: JP.ED 05:22 → JP.ICU 07:35
PROVIDERS: ADMIT Internal Medicine; ATTEND Internal Medicine
PROC: 30233N1 Transfusion of Nonautologous Red Blood Cells into Peripheral Vein, Percutaneous Approach (ICD-10-PCS; principal; 2019-08-03)
PROC: 0DJ08ZZ Inspection of Upper Intestinal Tract, Via Natural or Artificial Opening Endoscopic (ICD-10-PCS; 2019-08-03)
PROC: 0DJD8ZZ Inspection of Lower Intestinal Tract, Via Natural or Artificial Opening Endoscopic (ICD-10-PCS; 2019-08-04)
DX: K95.89 Other complications of other bariatric procedure (principal); K25.4 Chronic or unspecified gastric ulcer with hemorrhage; I95.89 Other hypotension; D62 Acute posthemorrhagic anemia; I95.9 Hypotension, unspecified; G89.29 Other chronic pain; M54.2 Cervicalgia; M25.519 Pain in unspecified shoulder; F32.9 Major depressive disorder, single episode, unspecified; Z88.1 Allergy status to other antibiotic agents; Z88.5 Allergy status to narcotic agent; Z98.84 Bariatric surgery status; Z79.899 Other long term (current) drug therapy; Z87.442 Personal history of urinary calculi; Z90.49 Acquired absence of other specified parts of digestive tract; Z87.891 Personal history of nicotine dependence
CPT/HCPCS: 36415; 36430; 80048; 80053; 83690; 84484; 85018; 85025; 85027; 86850; 86900; 86901; 86920; 86922; 93005; 96361; 96374; 96375; 99285-25; A9270-GY; C9113; G0480; J2001; J2060; J2250; J2405; J2704; J3010; J3480; J7030; J7050; P9016